=== PATIENT | female | born 1975 | race Asian ===

== ENCOUNTER → 2021-10-25 11:33 | Outpatient (CLI) | payer BC, SELFPAY ==
--- NOTE | 2021-10-25 | DI.MG.S_ITS ---
BILATERAL DIGITAL DIAGNOSTIC MAMMOGRAM 3D/2D: 10/25/2021 CLINICAL: Additional evaluation requested from prior study. Comparison is made to exams dated: 09/19/2021 mammogram, 06/16/2020 mammogram, and 04/20/2010 mammogram - [facility]. The tissue of both breasts is heterogeneously dense. This may lower the sensitivity of mammography. The asymmetry in the right breast middle depth lateral region seen on the craniocaudal view only is not seen in additional views. The asymmetry in the left breast is not seen on additional views. No other significant masses or calcifications are seen in either breast. IMPRESSION: BENIGN The right breast asymmetry seen on the screening mammogram likely respresents superimposed fibroglandular tissue and is benign. The left breast asymmetry seen on the screening mammogram likely respresents superimposed fibroglandular tissue and is benign. There is no mammographic evidence of malignancy. A 1 year screening mammogram is recommended. Based on Tyrer-Cuzick model (a risk assessment model), the patient's lifetime risk is 33.4% and her 10 year risk is 7.7%. If a patient has an elevated risk, a more comprehensive evaluation should be considered and/or a referral to a genetic counselor. The [employer] [employer], [employer], and NCCN Guidelines advise the consideration of Breast MRI as an adjunct to screening mammography in patients whose Lifetime risk to develop breast cancer is 20% or higher. This exam was interpreted at Station ID: [id number]. NOTE: For mammograms, a report in lay terms will be sent to the patient. Approximately 15% of breast malignancies will not be visualized mammographically. In the management of a palpable breast mass, a negative mammogram must not discourage biopsy of a clinically suspicious lesion. Electronically Signed By: Maxine royal/:10/25/2021 12:13:10 Entry: - 10/26/2021 11:48:21 letter sent: Normal Exam ACR BI-RADS Category 2: Benign Finding(s) 3342F
== END ==
PROVIDERS: PCP Physician Assistant; Referring Provider Physician Assistant; Visit Provider Physician Assistant
DX: R92.8 Other abnormal and inconclusive findings on diagnostic imaging of breast (principal); N64.89 Other specified disorders of breast
CPT/HCPCS: 77066; G0279